=== PATIENT | male | born 1990 | race Caucasian/White ===

== ENCOUNTER 2016-08-29 23:24 | Emergency (ER) | payer OTHER ==
--- NOTE | 2016-08-29 23:27 | PDOC ---
History of Present Illness - General Chief Complaint: Rash Stated Complaint: RASH Time Seen by Provider: 08/29/16 23:27 History Source: Patient Exam Limitations: No Limitations - History of Present Illness Initial Comments: 08/29/16 23:47 This is a 26-year-old male who comes in complaining of rash that is generalized. Patient said he's had the rash for approximately one month and getting worse. Patient went to an urgent care center couple weeks ago had a complete blood workup and testing for it and was told to follow-up with a molding sander. Patient has an appointment with a molding sander for 2 weeks from now. Patient doesn't want to wait any longer. PAST MEDICAL HISTORY: no significant history PAST SURGICAL HISTORY: no significant history FAMILY HISTORY: no pertinant history SOCIAL HISTORY: Pt lives with family and is employed. MEDICATIONS: reviewed ALLERGIES: As per nursing notes Review of Systems General: No fevers or chills, no weakness, no weight loss HEENT: No change in vision. No sore throat,. No ear pain CardioVascular: No chest pain or shortness of breath Respiratory:No cough, or wheezing. Gastrointestinal: no nausea, vomitting, diarrhea or constipation, No rectal bleeding Genitourinary: No dysuria, hematuria, or frequency Musculoskeletal: No joint or muscle pain or swelling Neurologic: No headache, vertigo, dizziness or loss of consciousness Psychiatric: nor depression Skin: Rash as per history of present illness Endocrine: no increased thirst or abnormal weight change Allergic: no skin or latex allergy All other systems reviewed and normal GENERAL: The patient is awake, alert, and fully oriented, in no acute distress. HEAD: Normal with no signs of trauma. EYES: Pupils equal, round and reactive to light, extraocular movements intact, sclera anicteric, conjunctiva clear. EXTREMITIES: Normal range of motion, no edema. NEUROLOGICAL: Normal speech, normal gait. PSYCH: Normal mood, normal affect. SKIN: Warm, Dry, normal turgor, there is a dry scaly rash diffusely to arms and legs. There is also small amount on the face. This is a 26-year-old male who comes in with a rash that is consistent with eczema. Patient was given a prescription for triamcinolone lotion and told to follow-up with his molding sander on the when he has an appointment. She discharged home with prescription Past History - Past Medical History Allergies/Adverse Reactions: Allergies Allergy/AdvReac Type Severity Reaction Status Date / Time No Known Allergies Allergy Verified 09/29/14 16:58 Home Medications: Ambulatory Orders Triamcinolone 0.1% Lotion [Aristocort 0.1% Lotion -] 1 applic TP BID #1 bottle 08/29/16 - Psycho/Social/Smoking Cessation Hx Anxiety: No Suicidal Ideation: No Smoking History: Unknown if ever smoked Have you smoked in the past 12 months: No Hx Alcohol Use: No Substance Use Type: None *DC/Admit/Observation/Transfer Diagnosis at time of Disposition: Eczema - Discharge Dispostion Disposition: HOME Condition at time of disposition: Stable Admit: No - Prescriptions Prescriptions: Triamcinolone 0.1% Lotion [Aristocort 0.1% Lotion -] 1 applic TP BID #1 bottle - Patient Instructions Additional Instructions: Return to the emergency department immediately with ANY new, persistent or worsening symptoms. Continue any medications as previously prescribed by your physician. You should follow up with your primary doctor as soon as possible regarding today's emergency department visit. . Please make sure your doctor reviews the results of your emergency evaluation. Thank you for coming to the Emergency Department today for your care. It was a pleasure to see you today. Please note that your evaluation is INCOMPLETE until you follow-up with your doctor.
[2016-08-29 23:31] VITALS: BP 111/82; PULSE 83; TEMP 98.2; BMI 43.2
== END 2016-08-29 23:55 | disposition home or self-care (01) ==
LOC: FER 23:24
DX: L30.9 Dermatitis, unspecified (principal)
CPT/HCPCS: 99281-25